=== PATIENT | female | born 1995 | race African-American/Black ===

== ENCOUNTER 2017-07-19 14:11 | Emergency (ER) | payer MEDICAID ==
[~2017-07-19] VITALS: Ht 165.1 cm; Wt 51.0 kg
[2017-07-19 15:02] VITALS: BP 122/72
== END 2017-07-19 17:57 | disposition home or self-care (01) ==
LOC: ER 14:27
DX: J06.9 Acute upper respiratory infection, unspecified (principal); H92.02 Otalgia, left ear
CPT/HCPCS: 99283